=== PATIENT | male | born 1955 | race Two or more races ===

== ENCOUNTER 2019-06-03 14:46 | Emergency (ER) | payer OTHER ==
[~2019-06-03] VITALS: Ht 165.1 cm; Wt 68.0 kg
--- NOTE | 2019-06-03 14:59 | NUR ---
CAME IN FOR PAIN AND SWELLING TO R HAND , TO ER BED 10, AWAITING MD COVARRUBIAS. WARM BLANKET PROVIDED
[2019-06-03] MEDS ORDERED: LIDOCAINE HCL/MPF 1% 30 ML VIAL IJ ONE (15:05)
--- NOTE | 2019-06-03 15:15 | NUR ---
DR CORRAL AT BEDSIDE FOR I&D
[2019-06-03] MEDS ORDERED: SULFAMETH/TRIMETH 800/160 MG 1 UDTAB TABLET PO ONE (15:30)
[2019-06-03] MEDS ORDERED: LIDOCAINE 1% INJ 50 ML MDV IJ ONE (15:30)
[2019-06-03] MEDS ORDERED: SULFAMETH/TRIMETH 800/160 MG 1 UDTAB TABLET ONE (15:39)
--- NOTE | 2019-06-03 16:00 | NUR ---
Patient discharged to home in stable condition. Written and verbal after care instructions given. Patient verbalizes understanding of instruction.
[2019-06-03 17:36] VITALS: BP 142/71
== END 2019-06-03 16:00 | disposition home or self-care (01) ==
LOC: ER 14:55
DX: L02.511 Cutaneous abscess of right hand (principal); L03.114 Cellulitis of left upper limb; L03.113 Cellulitis of right upper limb; E78.00 Pure hypercholesterolemia, unspecified; Z90.89 Acquired absence of other organs; Z98.890 Other specified postprocedural states
CPT/HCPCS: 10060; 99283; J3490